=== PATIENT | female | born 1985 | race Caucasian/White ===

== ENCOUNTER 2020-08-26 06:37 | Day surgery (SDC) | payer BC, MEDICAID ==
[~2020-08-26 06:37] MED LIST: Lactated Ringers 1,000 ML IV SCH
[2020-08-26] MEDS ORDERED: Midazolam 1 MG/ML 2 ML SDV ONE (07:01)
[2020-08-26] MEDS ORDERED: fentaNYL 100 MCG/2 ML SDV ONE (07:02)
[2020-08-26] MEDS ORDERED: Propofol 200 MG/20 ML SDV ONE (07:03)
[2020-08-26] MEDS ORDERED: Dexamethasone 4 MG/ML 5 ML MDV ONE (07:05)
[2020-08-26] MEDS ORDERED: Scopolamine 1.5 MG Transdermal Patch ONE (07:06)
[2020-08-26] MEDS ORDERED: Ondansetron 4 MG/2 ML SDV ONE (07:06)
[2020-08-26] MEDS ORDERED: Octyl 2-Cyanoacrylate 1 Tube ONE (07:26)
[2020-08-26] MEDS ORDERED: Fluorescein 5 ML Vial ONE (07:26)
[2020-08-26] MEDS ORDERED: Lidocaine 2% 5 ML SDV ONE (07:32)
[2020-08-26] MEDS ORDERED: Rocuronium Bromide 50 MG/5 ML Syringe ONE (07:32)
[2020-08-26] MEDS ORDERED: Sugammadex Sodium 200 MG/2 ML VIAL ONE (07:32)
[2020-08-26] MEDS ORDERED: Morphine 2 MG/ML SYRINGE IVPUSH PRN (07:40)
[2020-08-26] MEDS ORDERED: fentaNYL 100 MCG/2 ML SDV IVPUSH PRN (07:40)
[2020-08-26] MEDS ORDERED: Metoclopramide 10 MG/2 ML SDV IVPUSH PRN (07:40)
[2020-08-26] MEDS ORDERED: Ondansetron 4 MG/2 ML SDV IVPUSH PRN (07:40)
[2020-08-26] MEDS ORDERED: Albuterol 0.083% 2.5 MG/3 ML Neb Soln NEB PRN (07:40)
[2020-08-26] MEDS ORDERED: HYDROmorphone 2 MG/ML Syringe IVPUSH PRN (07:40)
[2020-08-26] MEDS ORDERED: Naloxone 0.4 MG/ML Syringe IVPUSH PRN (07:40)
--- NOTE | 2020-08-26 07:44 | PCM.PREANE ---
Preanesthetic Assessment - Anesthesia/Transfusion/Family Hx Anesthesia History: No Prior Anesthesia Transfusion History: No Prior Transfusion(s) - Review of Systems General: No Symptoms Pulmonary: No Symptoms Cardiovascular: No Symptoms Gastrointestinal: No Symptoms Neurological: No Symptoms Other: Reports: None - Physical Assessment NPO Status Date: 08/26/20 NPO Status Time: 00:00 Vital Signs: Last Vital Signs Temp 97.0 F 08/26/20 07:07 Pulse 82 08/26/20 07:07 Resp 15 08/26/20 07:07 BP 136/79 08/26/20 07:07 Pulse Ox 95 08/26/20 07:07 Height: 5 ft 5 in Weight: 210 lb ASA Class: 3 Mental Status: Alert & Oriented x3 Airway Class: Mallampati = 2 Dentition: Reports: Normal Dentition Thyro-Mental Finger Breadths: 3 Mouth Opening Finger Breadths: 3 ROM/Head Extension: Full Lungs: Clear to Auscultation, Normal Respiratory Effort Cardiovascular: Regular Rate, Regular Rhythm - Lab Values: Laboratory Last Values POC Glucose 253 mg/dL (70-99) H 08/26/20 07:18 Urine HCG, Qual NEGATIVE (NEGATIVE) 08/26/20 06:50 - Allergies Allergies/Adverse Reactions: Allergies Allergy/AdvReac Type Severity Reaction Status Date / Time No Known Allergies Allergy Verified 08/20/20 07:57 - Acknowledgements Anesthesia Type Planned: General Anesthesia Pt an Appropriate Candidate for the Planned Anesthesia: Yes Alternatives and Risks of Anesthesia Discussed w Pt/Guardian: Yes Pt/Guardian Understands and Agrees with Anesthesia Plan: Yes PreAnesthesia Questionnaire HEENT History: Reports: None Cardiovascular History: Reports: High Cholesterol, Hypertension Respiratory History: Reports: None Gastrointestinal History: Reports: None Genitourinary History: Reports: Other (See Below) Other Genitourinary History: stress in continence Musculoskeletal History: Reports: None Neurological History: Reports: None Psychiatric History: Reports: Anxiety, Depression Endocrine/Metabolic History: Reports: Hypothyroidism, Obesity/BMI 30+ Hematologic History: Reports: None Immunologic History: Reports: None Oncologic (Cancer) History: Reports: None Dermatologic History: Reports: None - Past Surgical History Head Surgeries/Procedures: Reports: None HEENT Surgical History: Reports: None Cardiovascular Surgical History: Reports: None Respiratory Surgical History: Reports: None GI Surgical History: Reports: None Female Surgical History: Reports: None Endocrine Surgical History: Reports: None Neurological Surgical History: Reports: None Musculoskeletal Surgical History: Reports: None Oncologic Surgical History: Reports: None Dermatological Surgical History: Reports: None - SUBSTANCE USE Tobacco Use Status *Q: Never Tobacco User - HOME MEDS Home Medications: Home Meds Budesonide/Formoterol Fumarate [Symbicort 160-4.5 Mcg Inhaler] 2 puff INH BID PRN 08/20/20 [History] Ergocalciferol (Vitamin D2) [Vitamin D2] 50,000 units PO WEEKLY 08/20/20 [History] Levothyroxine 200 mcg PO DAILY 08/20/20 [History] Sertraline HCl 50 mg PO DAILY 08/20/20 [History] Triamcinolone Acetonide [Triamcinolone Acetonide 0.1% Oint] 1 applic TOP ASDIRECTED PRN 08/20/20 [History] atorvaSTATin Calcium [Atorvastatin Calcium] 40 mg PO BEDTIME 08/20/20 [History] lisinopriL [Lisinopril] 20 mg PO DAILY 08/20/20 [History] metFORMIN HCl [Metformin HCl] 500 mg PO BID 08/20/20 [History] - CURRENT (IN HOUSE) MEDS Current Meds: Current Medications Albuterol (Albuterol 0.083% 2.5 Mg/3 Ml Neb Soln) 2.5 mg NEB ONETIME PRN PRN Reason: Wheezing Droperidol (Droperidol 5 Mg/2 Ml Sdv) 0.625 mg IVPUSH ONETIME PRN PRN Reason: Nausea/Vomiting Fentanyl (Fentanyl 100 Mcg/2 Ml Sdv) 50 mcg IVPUSH Q5M PRN PRN Reason: Pain (mild 1-3) Hydromorphone HCl (Hydromorphone 2 Mg/Ml Syringe) 1 mg IVPUSH Q10M PRN PRN Reason: Pain (moderate 4-6) Lactated Ringer's (Ringers, Lactated) 1,000 mls @ 125 mls/hr IV ASDIRECTED KEYA Last Admin: 08/26/20 07:05 Dose: 125 mls/hr Documented by: Metoclopramide HCl (Metoclopramide 10 Mg/2 Ml Sdv) 10 mg IVPUSH ONETIME PRN PRN Reason: Nausea/Vomiting Morphine Sulfate (Morphine 10 Mg/Ml Syringe) 2 mg IVPUSH Q10M PRN PRN Reason: Pain (severe 7-10) Naloxone HCl (Naloxone 0.4 Mg/Ml Syringe) 0.1 mg IVPUSH ASDIRECTED PRN PRN Reason: Respiratory Depression Ondansetron HCl (Ondansetron 4 Mg/2 Ml Sdv) 4 mg IVPUSH ONETIME PRN PRN Reason: Nausea/Vomiting Discontinued Medications Dexamethasone (Dexamethasone 4 Mg/Ml 5 Ml Mdv) Confirm Administered Dose 20 mg .ROUTE .[facility]-MED ONE Stop: 08/26/20 07:06 Fentanyl (Fentanyl 100 Mcg/2 Ml Sdv) Confirm Administered Dose 100 mcg .ROUTE .[facility] ONE Stop: 08/26/20 07:03 Fluorescein Sodium (Fluorescein 5 Ml Vial) Confirm Administered Dose 5 ml .ROUTE .[facility] ONE Stop: 08/26/20 07:27 Lidocaine (Lidocaine 2% 5 Ml Sdv) Confirm Administered Dose 5 ml .ROUTE .[facility] ONE Stop: 08/26/20 07:33 Lidocaine HCl (Lidocaine 1% 5 Ml Sdv) Confirm Administered Dose 5 ml .ROUTE .[facility] ONE Stop: 08/26/20 07:04 Midazolam HCl (Midazolam 1 Mg/Ml 2 Ml Sdv) Confirm Administered Dose 2 mg .ROUTE .[facility] ONE Stop: 08/26/20 07:02 Octyl Cyanoacrylate (Octyl 2-Cyanoacrylate 1 Tube) Confirm Administered Dose 1 applic .ROUTE .[facility] ONE Stop: 08/26/20 07:27 Ondansetron HCl (Ondansetron 4 Mg/2 Ml Sdv) Confirm Administered Dose 4 mg .ROUTE .[facility] ONE Stop: 08/26/20 07:07 Propofol (Propofol 200 Mg/20 Ml Sdv) Confirm Administered Dose 200 mg .ROUTE .[facility] ONE Stop: 08/26/20 07:04 Rocuronium [place] (Rocuronium [place] 50 Mg/5 Ml Syringe) Confirm Administered Dose 50 mg .ROUTE .[email or web address]-MED ONE Stop: 08/26/20 07:33 Scopolamine (Scopolamine 1.5 Mg Transdermal Patch) Confirm Administered Dose 1.5 mg .ROUTE .[facility] ONE Stop: 08/26/20 07:07 Last Admin: 08/26/20 07:23 Dose: 1.5 mg Documented by: Sugammadex Sodium (Sugammadex Sodium 200 Mg/2 Ml Vial) Confirm Administered Dose 200 mg .ROUTE .[facility] ONE Stop: 08/26/20 07:33
--- NOTE | 2020-08-26 08:38 | PCM.OPNOTE ---
- General Post-Op/Procedure Note Date of Surgery/Procedure: 08/26/20 Operative Procedure(s): TVT and Cysto Pre Op Diagnosis: ANTHONY Post-Op Diagnosis: Same Anesthesia Technique: General LMA Primary Surgeon: Marques BOSS in mLs: 50 Complications: None Condition: Good
--- NOTE | 2020-08-26 08:39 | PCM.DCSUM1 ---
Discharge Summary - Hospital Course Diagnosis: Stroke: No - Discharge Data Discharge Date: 08/26/20 Discharge Disposition: Home, Self-Care 01 Condition: Good - Referral to Home Health Primary Care Physician: Jacy Cox NP - Patient Summary/Data Operative Procedure(s) Performed: TVT and Cysto - Patient Instructions Diet: Usual Diet as Tolerated Activity: As Tolerated Driving: Do Not Drive Showering/Bathing: May Shower - Discharge Plan Home Medications: Home Meds Budesonide/Formoterol Fumarate [Symbicort 160-4.5 Mcg Inhaler] 2 puff INH BID PRN 08/20/20 [History] Ergocalciferol (Vitamin D2) [Vitamin D2] 50,000 units PO WEEKLY 08/20/20 [History] Levothyroxine 200 mcg PO DAILY 08/20/20 [History] Sertraline HCl 50 mg PO DAILY 08/20/20 [History] Triamcinolone Acetonide [Triamcinolone Acetonide 0.1% Oint] 1 applic TOP ASDIRECTED PRN 08/20/20 [History] atorvaSTATin Calcium [Atorvastatin Calcium] 40 mg PO BEDTIME 08/20/20 [History] lisinopriL [Lisinopril] 20 mg PO DAILY 08/20/20 [History] metFORMIN HCl [Metformin HCl] 500 mg PO BID 08/20/20 [History] - Discharge Summary/Plan Comment DC Time >30 min.: Yes - General Info Date of Service: 08/26/20 Functional Status: Reports: Pain Controlled - Review of Systems General: Reports: No Symptoms HEENT: Reports: No Symptoms Pulmonary: Reports: No Symptoms Cardiovascular: Reports: No Symptoms Gastrointestinal: Reports: No Symptoms Genitourinary: Reports: No Symptoms Musculoskeletal: Reports: No Symptoms Skin: Reports: No Symptoms Neurological: Reports: No Symptoms Psychiatric: Reports: No Symptoms - Patient Data Vitals - Most Recent: Last Vital Signs Temp 36.1 C 08/26/20 07:07 Pulse 82 08/26/20 07:07 Resp 15 08/26/20 07:07 BP 136/79 08/26/20 07:07 Pulse Ox 95 08/26/20 07:07 Weight - Most Recent: 95.254 kg Lab Results - Last 24 hrs: Laboratory Results - last 24 hr 08/26/20 08/26/20 Range/Units 06:50 07:18 POC Glucose 253 H (70-99) mg/dL Urine HCG, Qual NEGATIVE (NEGATIVE) Med Orders - Current: Current Medications Albuterol (Albuterol 0.083% 2.5 Mg/3 Ml Neb Soln) 2.5 mg NEB ONETIME PRN PRN Reason: Wheezing Droperidol (Droperidol 5 Mg/2 Ml Sdv) 0.625 mg IVPUSH ONETIME PRN PRN Reason: Nausea/Vomiting Fentanyl (Fentanyl 100 Mcg/2 Ml Sdv) 50 mcg IVPUSH Q5M PRN PRN Reason: Pain (mild 1-3) Hydromorphone HCl (Hydromorphone 2 Mg/Ml Syringe) 1 mg IVPUSH Q10M PRN PRN Reason: Pain (moderate 4-6) Lactated Ringer's (Ringers, Lactated) 1,000 mls @ 125 mls/hr IV ASDIRECTED KEYA Last Admin: 08/26/20 07:05 Dose: 125 mls/hr Documented by: Metoclopramide HCl (Metoclopramide 10 Mg/2 Ml Sdv) 10 mg IVPUSH ONETIME PRN PRN Reason: Nausea/Vomiting Morphine Sulfate (Morphine 2 Mg/Ml Syringe) 2 mg IVPUSH Q10M PRN PRN Reason: Pain (severe 7-10) Naloxone HCl (Naloxone 0.4 Mg/Ml Syringe) 0.1 mg IVPUSH ASDIRECTED PRN PRN Reason: Respiratory Depression Ondansetron HCl (Ondansetron 4 Mg/2 Ml Sdv) 4 mg IVPUSH ONETIME PRN PRN Reason: Nausea/Vomiting Discontinued Medications Dexamethasone (Dexamethasone 4 Mg/Ml 5 Ml Mdv) Confirm Administered Dose 20 mg .ROUTE .STK-MED ONE Stop: 08/26/20 07:06 Fentanyl (Fentanyl 100 Mcg/2 Ml Sdv) Confirm Administered Dose 100 mcg .ROUTE .STK-MED ONE Stop: 08/26/20 07:03 Fluorescein Sodium (Fluorescein 5 Ml Vial) Confirm Administered Dose 5 ml .ROUTE .STK-MED ONE Stop: 08/26/20 07:27 Lidocaine (Lidocaine 2% 5 Ml Sdv) Confirm Administered Dose 5 ml .ROUTE .STK-MED ONE Stop: 08/26/20 07:33 Lidocaine HCl (Lidocaine 1% 5 Ml Sdv) Confirm Administered Dose 5 ml .ROUTE .STK-MED ONE Stop: 08/26/20 07:04 Midazolam HCl (Midazolam 1 Mg/Ml 2 Ml Sdv) Confirm Administered Dose 2 mg .ROUTE .[facility]-MED ONE Stop: 08/26/20 07:02 Octyl Cyanoacrylate (Octyl 2-Cyanoacrylate 1 Tube) Confirm Administered Dose 1 applic .ROUTE .[facility] ONE Stop: 08/26/20 07:27 Ondansetron HCl (Ondansetron 4 Mg/2 Ml Sdv) Confirm Administered Dose 4 mg .ROUTE .[facility] ONE Stop: 08/26/20 07:07 Propofol (Propofol 200 Mg/20 Ml Sdv) Confirm Administered Dose 200 mg .ROUTE .[facility] ONE Stop: 08/26/20 07:04 Rocuronium [place] (Rocuronium [place] 50 Mg/5 Ml Syringe) Confirm Administered Dose 50 mg .ROUTE .[facility] ONE Stop: 08/26/20 07:33 Scopolamine (Scopolamine 1.5 Mg Transdermal Patch) Confirm Administered Dose 1.5 mg .ROUTE .[facility]-MED ONE Stop: 08/26/20 07:07 Last Admin: 08/26/20 07:23 Dose: 1.5 mg Documented by: Sugammadex Sodium (Sugammadex Sodium 200 Mg/2 Ml Vial) Confirm Administered Dose 200 mg .ROUTE .[facility] ONE Stop: 08/26/20 07:33 - Exam General: Reports: Alert, Oriented HEENT: Reports: Pupils Equal, Pupils Reactive, EOMI, Mucous Membr. Moist/[place] Neck: Reports: Supple Lungs: Reports: Clear to Auscultation, Normal Respiratory Effort Cardiovascular: Reports: Regular Rate, Regular Rhythm GI/Abdominal Exam: Normal Bowel Sounds, Soft, Non-Tender, No Organomegaly, No Distention, No Abnormal Bruit, No Mass, Pelvis Stable (Female) Exam: Normal External Exam, Normal Speculum Exam, Normal Bimanual Exam Rectal (Female) Exam: Normal Exam, Normal Rectal Tone Back Exam: Reports: Normal Inspection, Full Range of Motion Extremities: Normal Inspection, Normal Range of Motion, Non-Tender, No Pedal Edema, Normal Capillary Refill Skin: Reports: Warm, Dry, Intact Wound/Incisions: Reports: Healing Well Neurological: Reports: No New Focal Deficit Psy/Mental Status: Reports: Alert, Normal Affect, Normal Mood
--- NOTE | 2020-08-26 09:18 | PCM.POSTAN ---
POST ANESTHESIA ASSESSMENT - MENTAL STATUS Mental Status: Alert, Oriented - VITAL SIGNS Vital Signs: Last Vital Signs Temp 98.6 F 08/26/20 08:45 Pulse 76 08/26/20 09:09 Resp 15 08/26/20 09:09 BP 119/66 08/26/20 09:09 Pulse Ox 95 08/26/20 09:09 - RESPIRATORY Respiratory Status: Respiratory Rate WNL, Airway Patent, O2 Saturation Stable - CARDIOVASCULAR CV Status: Pulse Rate WNL, Blood Pressure Stable - GASTROINTESTINAL GI Status: No Symptoms - POST OP HYDRATION Hydration Status: Adequate & Stable
--- NOTE | 2020-08-26 09:18 | PCM48HPAN ---
Post Anesthesia Note - EVALUATION WITHIN 48HRS OF ANESTHETIC Vital Signs in Normal Range: Yes Patient Participated in Evaluation: Yes Respiratory Function Stable: Yes Airway Patent: Yes Cardiovascular Function Stable: Yes Hydration Status Stable: Yes Pain Control Satisfactory: Yes Nausea and Vomiting Control Satisfactory: Yes Mental Status Recovered: Yes Vital Signs: Last Vital Signs Temp 98.6 F 08/26/20 08:45 Pulse 76 08/26/20 09:09 Resp 15 08/26/20 09:09 BP 119/66 08/26/20 09:09 Pulse Ox 95 08/26/20 09:09
[2020-08-26] MEDS ORDERED: Acetaminophen 1,000 MG in Premix Bag 1 BAG IV ONE (09:54)
[2020-08-26] MEDS ORDERED: Ketorolac 30 MG/ML SDV IVPUSH ONE (09:54)
--- NOTE | 2020-08-26 15:30 | OR ---
SURGEON: Marques Kerns MD DATE OF PROCEDURE: 08/26/2020 PREOPERATIVE DIAGNOSIS: Stress urinary incontinence. POSTOPERATIVE DIAGNOSIS: Stress urinary incontinence. OPERATION PERFORMED: Tension-free vaginal tape with cystoscopy. PRIMARY SURGEON: Marques Kerns MD ODD JOB LABORER: BETTY martínez. ANESTHESIA: General endotracheal intubation. ESTIMATED BLOOD LOSS: 50 mL. COMPLICATIONS: None. FINDING: Stress urinary incontinence. INDICATION FOR SURGERY: [place] refer to the admit note. PROCEDURE: The patient was brought to the OR, properly identified. After adequate level of anesthesia, the patient was placed in lithotomy position, prepped and draped in sterile fashion as usual. Straight catheter was used to empty the bladder and then Allis clamp was applied to the anterior vaginal wall beneath the urethra. For about an inch and a half beneath the urethra, the vaginal wall was infiltrated with copious amount of normal saline and then opened in the midline with electrocautery and dissected laterally on both sides in a tunneling fashion, creating a tunnel for the TVT. The tunneling continued until I felt the pubic rami on both sides. Then, the Solyx TVT was placed into place behind the pubic rami and anchored to the endopelvic fascia on both sides with due amount of tension to elevate the urethrovesical angle. Once that was done, then the vaginal cuff was closed with 2-0 Vicryl continuous interlocking for hemostasis. While we were doing that, we asked Anesthesia personnel to give the patient fluorescein and then cystoscopy was performed. The bladder was intact. Both ureteric orifices were seen with dye coming from both of them. Thus, the patency of both ureters verified. Satisfied with these findings, the procedure was ended. The instrument and sponge count was correct. The patient tolerated the procedure well and went to recovery room in stable general condition. SULMA / LEROY /[id number]
== END 2020-08-26 10:53 | disposition home or self-care (01) ==
LOC: MW.SDS 06:37
PROVIDERS: ATTEND Obstetrics & Gynecology
DX: N39.3 Stress incontinence (female) (male) (principal); I10 Essential (primary) hypertension; E03.9 Hypothyroidism, unspecified; E78.2 Mixed hyperlipidemia; E11.9 Type 2 diabetes mellitus without complications; E66.9 Obesity, unspecified; E55.9 Vitamin D deficiency, unspecified; Z79.899 Other long term (current) drug therapy; Z79.890 Hormone replacement therapy; Z79.84 Long term (current) use of oral hypoglycemic drugs
CPT/HCPCS: 57288; 81025; 82947; A9270; C1771; J0131; J1100; J2250; J2704; J3490; J7120; 00860; J2405; J3010